=== PATIENT | female | born 1975 | race American Indian/Alaskan Native ===

== ENCOUNTER 2020-02-09 17:17 | Inpatient (IN) | payer BC ==
[2020-02-09] MEDS ORDERED: NALOXONE 0.4 MG/1 ML INJ IV PRN (17:51)
[2020-02-09] MEDS ORDERED: ALUM-MAG HYDROXIDE-SIMETHICONE 200-200-20MG/5ML ORAL LIQD 30 ML PO PRN (17:51)
[2020-02-09] MEDS ORDERED: ACETAMINOPHEN 325 MG TAB PO PRN (17:51)
[2020-02-09] MEDS ORDERED: ONDANSETRON 4 MG/2 ML INJ IV PRN (17:51)
[2020-02-09] MEDS ORDERED: MAGNESIUM HYDROXIDE (MOM) ORAL LIQD UDC PO PRN (17:51)
[2020-02-09] MEDS ORDERED: PROMETHAZINE 25 MG RECT SUPP PR PRN (17:51)
[2020-02-09 19:35] LABS: Basophils # (Auto) 0.1 K/mm3 (0.0-0.1); Basophils % (Auto) 0.6 % (0.0-1.8); Eosinophils # (Auto) 0.4 K/mm3 (0.0-0.4); Eosinophils % (Auto) 3.2 % (0.0-4.3); Hematocrit 31.1 % (30.3-42.9); Lymphocytes % (Auto) 17.4 % (13.4-35.0); Mean Corpuscular HGB Conc 32 % (30-34); Mean Corpuscular Volume 80 fl (79-97); Monocytes # (Auto) 1.2 K/mm3 (0.0-0.8); Monocytes % (Auto) 10.4 % (0.0-7.3); Platelet Count 364 K/mm3 (140-440); Red Blood Count 3.87 M/mm3 (3.65-5.03); Red Cell Distribution Width 16.1 % (13.2-15.2)
[2020-02-09 19:44] LABS: INR 1.21 (0.87-1.13)
[2020-02-09 19:45] LABS: Partial Thromboplastin Time 41.2 Sec. (24.2-36.6)
[2020-02-09 19:52] LABS: BUN/Creatinine Ratio 13; Blood Urea Nitrogen 8 mg/dL (7-17); Calcium 9.6 mg/dL (8.4-10.2); Hemolysis Index 0
[2020-02-09] MEDS: oxyCODONE /ACETAMINOPHEN 5-325MG TAB PO PRN (21:09)
[2020-02-09] MEDS: GABAPENTIN 300 MG CAP PO SCH (22:26)
[2020-02-09] MEDS: ENOXAPARIN 100 MG/1 ML INJ SUB-Q SCH (22:26)
[2020-02-09] MEDS: DOCUSATE SODIUM 100 MG CAP PO SCH (22:26)
[2020-02-09] MEDS: FAMOTIDINE 20 MG/2 ML INJ IV SCH (22:26)
[2020-02-10] MEDS: HYDROmorphone 1 MG/1 ML INJ IV PRN ×3 (02:11→20:47)
[2020-02-10] MEDS: oxyCODONE /ACETAMINOPHEN 5-325MG TAB PO PRN (03:28)
[2020-02-10] MEDS: GABAPENTIN 300 MG CAP PO SCH ×4 (06:52→21:01)
[2020-02-10] MEDS ORDERED: ACETAMINOPHEN 325 MG TAB ONE (07:18)
[2020-02-10] MEDS ORDERED: HEPARIN/NS 5000 UNIT/500ML 1,000 ML IR ONE (07:53)
[2020-02-10] MEDS ORDERED: SODIUM CHLORIDE 0.9% 500 ML 500 ML IV SCH (08:00)
[2020-02-10] MEDS ORDERED: ceFAZolin/Water 2 GM/20 ML 2 GM/20 ML SYRINGE IV ONE (08:06)
[2020-02-10] MEDS: MIDAZOLAM 2 MG/2 ML INJ ONE ×6 (08:10→11:03)
[2020-02-10] MEDS: fentaNYL 100 MCG/2 ML INJ ONE ×5 (08:10→10:18)
[2020-02-10] MEDS: LIDOCAINE (2%) 20 MG/1 ML VIAL 20 ML MDV INFILTRATI ONE ×2 (08:15→09:05)
[2020-02-10] MEDS ORDERED: ALTEPLASE 2 MG INJ ONE ×2 (08:42→08:44)
[2020-02-10] MEDS ORDERED: HEPARIN/NS 5000 UNIT/500ML 500 ML IR ONE (08:45)
[2020-02-10] MEDS ORDERED: SODIUM CHLORIDE 0.9% 100 ML ONE (08:46)
[2020-02-10] MEDS ORDERED: WATER FOR INJ STERILE ONE (08:46)
[2020-02-10] MEDS ORDERED: fentaNYL 100 MCG/2 ML INJ ONE (09:05)
[2020-02-10] MEDS ORDERED: MIDAZOLAM 2 MG/2 ML INJ ONE ×2 (09:05→11:00)
[2020-02-10] MEDS: HEPARIN 10,000 UNITS/10 ML VIAL ONE ×3 (09:16→10:55)
[2020-02-10] MEDS ORDERED: HYDROmorphone 1 MG/1 ML INJ ONE (10:28)
[2020-02-10] MEDS ORDERED: hydrALAZINE 20 MG/1 ML INJ ONE (10:44)
[2020-02-10] MEDS ORDERED: diphenhydrAMINE 50 MG/ML VIAL ONE (11:00)
[2020-02-10] MEDS ORDERED: KETOROLAC 30 MG/1 ML INJ ONE (11:24)
[2020-02-10] MEDS: SERTRALINE 100 MG TAB PO SCH (12:37)
[2020-02-10] MEDS: CLOPIDOGREL 75 MG TAB PO SCH (12:37)
[2020-02-10] MEDS: FAMOTIDINE 20 MG/2 ML INJ IV SCH ×2 (12:37→21:01)
[2020-02-10] MEDS: DOCUSATE SODIUM 100 MG CAP PO SCH ×2 (12:37→21:01)
[2020-02-10] MEDS: ENOXAPARIN 100 MG/1 ML INJ SUB-Q SCH ×2 (12:37→22:55)
--- NOTE | 2020-02-10 16:19 | Operative Report ---
Operative Report Operative Report: Date of Procedure: 02/10/2020 Pre-operative Diagnosis: Bilateral Lower Extremity DVT Post-operative Diagnosis: Same Procedure(s): 1. Ultrasound-Guided Access Right Internal Jugular Vein 2. Diagnostic Inferior Venacavogram 3. Placement of Honey IVC Filter 4. Diagnostic Right Lower Extremity Venogram 5. Diagnostic Left Lower Extremity Venogram 6. Percutaneous Pharmacomechanical Thrombectomy Of Left Common Femoral Vein with Zelante AngioJet Catheter, Vendor Representatives Device, and 20 mg of TPA 7. Percutaneous Pharmacomechanical Thrombectomy Of Left External Iliac Vein with Zelante AngioJet Catheter, Vendor Representatives Device, and 20 mg of TPA 8. Percutaneous Pharmacomechanical Thrombectomy Of Left Common Iliac Vein with Zelante AngioJet Catheter, Vendor Representatives Device, and 20 mg of TPA 9. Percutaneous Pharmacomechanical Thrombectomy Of Right Common Femoral Vein with Zelante AngioJet Catheter and 20 mg of TPA 10. Percutaneous Pharmacomechanical Thrombectomy Of Right External Iliac Vein with Zelante AngioJet Catheter and 20 mg of TPA 11. Percutaneous Pharmacomechanical Thrombectomy Of Right Common Iliac Vein with Zelante AngioJet Catheter and 20 mg of TPA 12. Percutaneous Mechanical Thrombectomy of Inferior Vena Cava with Zelante AngioJet Catheter 13. Angioplasty of Right Common Iliac Vein With 14 x 40 [place] Balloon 14. Angioplasty of Right External Iliac Vein with 14 x 40 [place] Balloon 15. Angioplasty of Right Common Femoral Vein with 14 x 40 [place] Balloon 16. Angioplasty and Stent of Left Common Iliac Vein With 14 x 40 [place] Balloon and 14 x 160 Venovo Stent 17. Angioplasty and Stent of Left Common Femoral Vein with a 14 x 40 [place] Balloon and 14 x 100 Venovo Stent 18. Radiologic Supervision with Interpretation Surgeon: Scot Franco M.D. 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 The stents thrombosed require intervention. She presented to the office with complaints of bilateral lower extremity pain as well as abdominal fullness and pain and was found to have DVTs in bilateral lower extremities despite being on full anticoagulation with Eliquis. She is in need of placement of an IVC filter as well as bilateral lower extremity venograms and possible percutaneous bilateral lower extremity mechanical thrombectomies. She was given the risk, benefits, and alternative procedures and consented to the procedure. Venogram Findings: The IVC filter was placed at the body of L1 at the level of the renal veins. The inferior venacavogram revealed that there was thrombus in the distal IVC above the right common iliac vein stent. The right lower extremity venogram revealed the popliteal vein and femoral vein were chronically occluded. The saphenous vein was dilated and the dominant outflow of the lower extremity. The common femoral vein was occluded just distal to the previously placed stent. The profunda vein was patent and the outflow was through collaterals lateral to the previously placed stent. The stent in the common femoral, external iliac, and common iliac were occluded. The left lower extremity venogram revealed that the popliteal vein and femoral vein were patent. The common femoral vein was occluded with thrombus. There was thrombus within the distal external iliac vein. The proximal external iliac vein had approximately 95% stenosis. There was thrombus within the common iliac vein and stenosis of approximately 95%. After intervention the right common femoral vein was patent with approximately 20% residual stenosis. There was approximately 25% residual stenosis within the external iliac vein and right common iliac vein. The left common femoral vein was patent with less than 15% residual stenosis and minimal residual thrombus. The left external iliac vein and common iliac vein were both patent with less than 15% residual stenosis and minimal residual thrombus. There was evidence of minimal residual thrombus on the right lateral wall of the inferior vena cava and no residual thrombus noted within the IVC filter. Description of Procedure: The patient was brought to the laborer wrecking and salvaging and laid in supine position. After a timeout was performed the patient's right neck was prepped and draped in normal sterile fashion. Ultrasound was used to identify the right internal jugular vein and confirm patency. Once patency was confirmed the overlying skin and soft tissue was anesthetized with lidocaine. An 11 blade was used to make a sma ll stab incision and an 18-gauge needle was used with ultrasound guidance to enter the right internal jugular vein. A 0.035 J-wire was advanced into the superior vena cava and the needle was exchanged for 5 Cambodian sheath by Seldinger technique. A vertebral catheter was then used to advance the J-wire into the inferior vena cava and the 5 [place]odian sheath was exchanged for the IVC filter delivery catheter. A diagnostic inferior venacavogram was performed with the previously described findings. The IVC filter was then inserted and positioned at the body of L1 and the delivery sheath was then withdrawn deploying the filter at the body of L1. The delivery sheath was then removed and pressure was held at the insertion site until hemostasis was achieved and Dermabond was used to close the insertion site. The patient was then moved onto her bed and then flipped into prone position. Her bilateral popliteal fossa's were then prepped and draped in normal sterile fashion. Ultrasound was used to identify the left popliteal vein and confirm patency. Once patency was confirmed the overlying skin and soft tissue was anesthetized with lidocaine and a small stab incision was made with an 11 blade. A 21-gauge micropuncture needle was used with ultrasound guidance into the left popliteal vein. A 0.018 micropuncture wire was advanced into the vein and the needle was exchanged for micropuncture sheath. A 0.035 advantage wire was advanced into the vein and the micropuncture sheath was exchanged for 5 Cambodian sheath by Seldinger technique. A diagnostic venogram was performed with the previously described findings. I then used ultrasound to identify the right popliteal vein and confirm patency. I then anesthetized the overlying skin and soft tissue with lidocaine and used an 11 blade to make a small stab incision in the use a 21-gauge micropuncture needle with ultrasound guidance to enter the vein and then advanced the micropuncture sheath. I performed a diagnostic venogram and this demonstrated that I was in a collateral vein and that the popliteal vein and femoral vein were chronically occluded and that the saphenous vein was dilated and the main outflow from the right lower extremity. I advanced a 0.035 advantage wire through the micropuncture sheath and was able to manipulate the wire through a collateral branch into the saphenous vein into the occluded portion of the common femoral vein. I exchanged the micropuncture sheath for 5 Cambodian sheath and advanced a Navicross catheter to the level of occlusion. At this point I systemically heparinized the patient with 5000 units of heparin IV and this was redosed with 1000 units every 45 minutes until the completion of the case. I made multiple attempts with various catheters and wires to cross the occlusion into the stent within the proximal common femoral vein without success. I decided to abort the attempts and work on the left side. I advanced the Navicross catheter over the advantage wire in the left common femoral vein. I advanced the wire and catheter into the proximal left external iliac vein and met resistance however I was eventually able to advance the catheter wire into the proximal left common iliac vein. I attempted to advance the catheter wire into the inferior vena cava however the wire catheter went up and over the bifurcation and into the right common iliac vein and stents. I was able to advance the wire catheter into the distal right external iliac vein. I removed the Navicross catheter and exchanged the 5 Cambodian sheath for a 6 Cambodian 90 cm destination sheath. I readvanced the Navicross catheter and was able to advance the wire catheter through the occluded portion of the stent and into the right saphenous vein. I then advanced a Tulip snare catheter through the 5 Cambodian sheath in the popliteal vein and was able to snare the catheter and snared the advantage wire. I pulled the wire through the right popliteal vein and then advanced the Choe cross catheter back through the proximal common iliac vein. I removed the advantage wire and turned at the proper way and advanced the wire into the inferior vena cava. I then advanced an additional advantage wire through the left popliteal vein and into the inferior vena cava. I exchanged both popliteal vein sheaths for 1010 Cambodian 11 cm sheath. I then used the Zelante AngioJet Catheter, using the pulse spray mode, to lace the common femoral vein, external iliac vein, common iliac vein, and IVC bilaterally with 20 mg of TPA respectively and allow this to dwell for 20 minutes. After using the pulse removed I used the Zelante AngioJet Catheter to perform percutaneous mechanical thrombectomy of common femoral, external iliac, common iliac veins bilaterally and the distal IVC. The follow-up venogram on the right lower extremity revealed minimal residual thrombus however there was stenosis within the veins were performed angioplasty with a 14 x 40 [place] balloon resulting in approximately 20% residual stenosis within the common femoral vein and 25% residual stenosis within the external iliac and common iliac vein. The follow- up venogram on the left lower extremity revealed no outflow through the left common femoral iliac veins. I advanced the catheter and performed a venogram from the common femoral vein revealing some residual thrombus within the common femoral vein as well as the distal external iliac vein so I advanced a service cleaner device to morcellate the thrombus. I then readvanced the AngioJet catheter and was able to aspirate the thrombus. Additional venogram revealed that there was still minimal flow throughout the iliac system and advancement of the catheter with a venogram revealed the stenosis within the external iliac as well as the common iliac vein. I advanced the wire into the inferior vena cava and performed angioplasty of the common iliac vein, external iliac vein, and common femoral vein with a 14 x 40 [place] balloon however all lesions recoil. I decided to place stents. I advanced a 14 x 160 Venovo Stent into the proximal common iliac vein and deployed this followed by a 14 x 100 Venovo Stent that extended into the mid common femoral vein. I postdilated the stents with a 14 x 40 [place] balloon with a result of less than 15% residual stenosis throughout all the veins and minimal residual thrombus. There was some thrombus that was pushed into the distal inferior vena cava. I advanced an 8 Cambodian multipurpose catheter into the distal inferior vena cava and was able to aspirate the thrombus and examination of thrombus revealed that this was clearly chronic thrombus. Follow-up venogram revealed minimal residual thrombus in the distal lateral right IVC and no thrombus was appreciated within the inferior vena cava filter. At this point I removed all catheters and wires and the sheaths within the popliteal veins were removed and sterile pressure dressings were applied and the patient was transported to her room in stable condition.
[2020-02-10] MEDS: METOCLOPRAMIDE 10 MG/2 ML INJ IV PRN (20:48)
[2020-02-11] MEDS: HYDROmorphone 1 MG/1 ML INJ IV PRN ×2 (04:23→09:02)
[2020-02-11] MEDS: GABAPENTIN 300 MG CAP PO SCH (06:25)
[2020-02-11 07:39] VITALS: BP 102/58
--- NOTE | 2020-02-11 08:56 | Progress Note ---
Assessment and Plan The patient is significantly improved after bilateral iliofemoral percutaneous mechanical thrombectomy and stenting of the left iliac and common femoral veins. She will be discharged on Lovenox 100 mg subcu twice daily and I will have her follow-up with a hotel administrative assistant in her area for a hypercoagulable work-up and I suspect that she will be transition to Coumadin. I will have her follow-up with me in the office in 2 weeks and at that time I will schedule her for removal of her IVC filter. I will also add Robaxin to her discharge medications for pain control. Otherwise she is clinically ready for discharge home. She has been given her discharge instructions and has expressed understanding. Subjective Date of service: 02/11/20 Principal diagnosis: B/L DVT Interval history: The patient is without new complaints. She is significantly improved from prior to the procedure. She has some back pain however it is better than prior to the procedure. Objective - Constitutional Vitals: Vital Signs - 12hr 02/10/20 02/11/20 02/11/20 23:47 01:00 03:40 Temperature 98.8 F 98.2 F Pulse Rate 79 87 79 Pulse Rate [ 75 From Monitor] Respiratory 18 18 18 Rate Blood Pressure 111/62 109/60 O2 Sat by Pulse 99 100 Oximetry 02/11/20 07:32 Temperature 98.3 F Pulse Rate 69 Pulse Rate [ From Monitor] Respiratory 16 Rate Blood Pressure 102/58 O2 Sat by Pulse 99 Oximetry General appearance: Present: no acute distress - Neck Neck: other (Right neck procedure site is without hematoma.) - Respiratory Respiratory effort: normal - Cardiovascular Rhythm: regular Extremities: no ischemia, abnormal (Right posterior knee access site with minimal bleeding.) Extremity abnormal: edema (Right greater than left however improved from prior to procedure.), other (Right lateral malleolus ulceration is almost completely healed) - Gastrointestinal General gastrointestinal: Present: soft, tender (Mild tenderness suprapubic area), distended (Mildly distended) Rectal Exam: deferred - Genitourinary Female genitourinary: deferred - Labs CBC & Chem 7: 02/09/20 19:11 02/09/20 19:11 Medications & Allergies - Medications Allergies/Adverse Reactions: Allergies naproxen Adverse Reaction (Verified 02/09/20 17:19) Rash Home Medications: Home Medications Medication Instructions Recorded Confirmed Last Taken Type Cyclobenzaprine HCl 02/10/20 Unknown History [Cyclobenzaprine 7.5 MG TAB] Active Medications: Generic Name Dose Route Start Last Admin Trade Name Freq PRN Reason Stop Dose Admin Acetaminophen 650 mg 02/09/20 17:51 02/10/20 07:18 Tylenol PO 650 mg Q4H PRN Administration Pain MILD(1-3)/Fever >100.5/MORA Al Hydrox/Mg Hydrox/Simethicone 30 ml 02/09/20 17:51 Alum-Mag Hydrox-Simeth [id number]/5ml PO Q4H PRN Indigestion Bisacodyl 10 mg 02/09/20 17:51 Dulcolax NJ QDAY PRN Constipation unrelieved by MOM Clopidogrel Bisulfate 75 mg 02/10/20 13:00 02/10/20 12:37 Plavix PO 75 mg QDAY ALEN Administration Docusate Sodium 100 mg 02/09/20 22:00 02/10/20 21:01 Colace PO 100 mg BID ALEN Administration Enoxaparin Sodium 100 mg 02/09/20 22:00 02/10/20 22:55 Enoxaparin SUB-Q 100 mg Q12HR ALEN Administration Famotidine 20 mg 02/09/20 22:00 02/10/20 21:01 Pepcid IV 20 mg BID ALEN Administration Gabapentin 300 mg 02/09/20 22:00 02/11/20 06:25 Gabapentin PO 300 mg Q8HR ALEN Administration Hydromorphone HCl 1 mg 02/09/20 17:51 02/11/20 04:23 Dilaudid IV 1 mg Q3H PRN Administration Pain, Moderate (4-6) Sodium Chloride 500 mls @ 50 mls/hr 02/10/20 08:00 02/10/20 07:25 Nacl 0.9% 500 Ml IV 50 mls/hr DIRECT ALEN Administration Magnesium Hydroxide 30 ml 02/09/20 17:51 Milk Of Magnesia PO Q4H PRN Constipation Metoclopramide HCl 10 mg 02/09/20 17:51 02/10/20 20:48 Reglan IV 10 mg Q6H PRN Administration Nausea And Vomiting Naloxone HCl 0.1 mg 02/09/20 17:51 Naloxone IV Q2MIN PRN Res Rate </= 8 or 02 SAT < 92% Ondansetron HCl 4 mg 02/09/20 17:51 02/10/20 15:34 Zofran IV 4 mg Q8H PRN Administration Nausea And Vomiting Oxycodone/Acetaminophen 2 tab 02/09/20 17:51 02/10/20 03:28 Percocet 5/325 PO 2 tab Q6H PRN Administration Pain, Moderate (4-6) Promethazine HCl 25 mg 02/09/20 17:51 Phenergan NJ Q6H PRN N/V IF NPO AND NO IV ACCESS Sertraline HCl 100 mg 02/10/20 10:00 02/10/20 12:37 Zoloft PO 100 mg QDAY ALEN Administration Sodium Chloride 10 ml 02/09/20 22:00 02/10/20 21:01 Sodium Chloride Flush Syringe 10 Ml IV 10 ml BID ALEN Administration Sodium Chloride 10 ml 02/09/20 17:51 Sodium Chloride Flush Syringe 10 Ml IV PRN PRN LINE FLUSH
[2020-02-11] MEDS: FAMOTIDINE 20 MG/2 ML INJ IV SCH (09:02)
[2020-02-11] MEDS: ENOXAPARIN 100 MG/1 ML INJ SUB-Q SCH (09:02)
[2020-02-11] MEDS: METOCLOPRAMIDE 10 MG/2 ML INJ IV PRN (09:03)
[2020-02-11] MEDS: DOCUSATE SODIUM 100 MG CAP PO SCH (09:03)
[2020-02-11] MEDS: CLOPIDOGREL 75 MG TAB PO SCH (09:03)
[2020-02-11] MEDS: SERTRALINE 100 MG TAB PO SCH (09:03)
--- NOTE | 2020-02-11 09:04 | Short Stay Summary ---
Short Stay Documentation Date of service: 02/10/20 Narrative H&P: See H&P - History H&P: obtained from office - Allergies and Medications Current Medications: Allergies naproxen Adverse Reaction (Verified 02/09/20 17:19) Rash Home Medications Medication Instructions Recorded Confirmed Last Taken Type Cyclobenzaprine HCl 02/10/20 Unknown History [Cyclobenzaprine 7.5 MG TAB] Active Medications Acetaminophen (Tylenol) 650 mg PO Q4H PRN PRN Reason: Pain MILD(1-3)/Fever >100.5/OMRA Last Admin: 02/10/20 07:18 Dose: 650 mg Documented by: Al Hydrox/Mg Hydrox/Simethicone (Alum-Mag Hydrox-Simeth [phone]/5ml) 30 ml PO Q4H PRN PRN Reason: Indigestion Bisacodyl (Dulcolax) 10 mg [place] QDAY PRN PRN Reason: Constipation unrelieved by MOM Clopidogrel Bisulfate (Plavix) 75 mg PO QDAY [facility] Last Admin: 02/10/20 12:37 Dose: 75 mg Documented by: Docusate Sodium (Colace) 100 mg PO BID [facility] Last Admin: 02/10/20 21:01 Dose: 100 mg Documented by: Enoxaparin Sodium (Enoxaparin) 100 mg SUB-Q Q12HR [facility] Last Admin: 02/10/20 22:55 Dose: 100 mg Documented by: Famotidine (Pepcid) 20 mg IV BID [facility] Last Admin: 02/10/20 21:01 Dose: 20 mg Documented by: Gabapentin (Gabapentin) 300 mg PO Q8HR [facility] Last Admin: 02/11/20 06:25 Dose: 300 mg Documented by: Hydromorphone HCl (Dilaudid) 1 mg IV Q3H PRN PRN Reason: Pain, Moderate (4-6) Last Admin: 02/11/20 04:23 Dose: 1 mg Documented by: Sodium Chloride (Nacl 0.9% 500 Ml) 500 mls @ 50 mls/hr IV DIRECT [facility] Last Admin: 02/10/20 07:25 Dose: 50 mls/hr Documented by: Magnesium Hydroxide (Milk Of Magnesia) 30 ml PO Q4H PRN PRN Reason: Constipation Metoclopramide HCl (Reglan) 10 mg IV Q6H PRN PRN Reason: Nausea And Vomiting Last Admin: 02/10/20 20:48 Dose: 10 mg Documented by: Naloxone HCl (Naloxone) 0.1 mg IV Q2MIN PRN PRN Reason: Res Rate </= 8 or 02 SAT < 92% Ondansetron HCl (Zofran) 4 mg IV Q8H PRN PRN Reason: Nausea And Vomiting Last Admin: 02/10/20 15:34 Dose: 4 mg Documented by: Oxycodone/Acetaminophen (Percocet 5/325) 2 tab PO Q6H PRN PRN Reason: Pain, Moderate (4-6) Last Admin: 02/10/20 03:28 Dose: 2 tab Documented by: Promethazine HCl (Phenergan) 25 mg [place] Q6H PRN PRN Reason: N/V IF NPO AND NO IV ACCESS Sertraline HCl (Zoloft) 100 mg PO QDAY ALEN Last Admin: 02/10/20 12:37 Dose: 100 mg Documented by: Sodium Chloride (Sodium Chloride Flush Syringe 10 Ml) 10 ml IV BID [facility] Last Admin: 02/10/20 21:01 Dose: 10 ml Documented by: Sodium Chloride (Sodium Chloride Flush Syringe 10 Ml) 10 ml IV PRN PRN PRN Reason: LINE FLUSH - Physical exam Extremities: no ischemia, abnormal (Right posterior knee access site with minimal bleeding.) - Brief post op/procedure progress note Date of procedure: 02/10/20 Pre-op diagnosis: Bilateral Lower Extremity DVT Post-op diagnosis: same Procedure: 1. Ultrasound-Guided Access Right Internal Jugular Vein 2. Diagnostic Inferior Venacavogram 3. Placement of [place] IVC Filter 4. Diagnostic Right Lower Extremity Venogram 5. Diagnostic Left Lower Extremity Venogram 6. Percutaneous Pharmacomechanical Thrombectomy Of Left Common Femoral Vein with Zelante AngioJet Catheter, [employer] Application Developer Device, and 20 mg of TPA 7. Percutaneous Pharmacomechanical Thrombectomy Of Left External Iliac Vein with Zelante AngioJet Catheter, [employer] Application Developer Device, and 20 mg of TPA 8. Percutaneous Pharmacomechanical Thrombectomy Of Left Common Iliac Vein with Zelante AngioJet Catheter, [employer] Application Developer Device, and 20 mg of TPA 9. Percutaneous Pharmacomechanical Thrombectomy Of Right Common Femoral Vein with Zelante AngioJet Catheter and 20 mg of TPA 10. Percutaneous Pharmacomechanical Thrombectomy Of Right External Iliac Vein with Zelante AngioJet Catheter and 20 mg of TPA 11. Percutaneous Pharmacomechanical Thrombectomy Of Right Common Iliac Vein with Zelante AngioJet Catheter and 20 mg of TPA 12. Percutaneous Mechanical Thrombectomy of Inferior Vena Cava with Zelante AngioJet Catheter 13. Angioplasty of Right Common Iliac Vein With 14 x 40 [place] Balloon 14. Angioplasty of Right External Iliac Vein with 14 x 40 [place] Balloon 15. Angioplasty of Right Common Femoral Vein with 14 x 40 [place] Balloon 16. Angioplasty and Stent of Left Common Iliac Vein With 14 x 40 Joshua Balloon and 14 x 160 Venovo Stent 17. Angioplasty and Stent of Left Common Femoral Vein with a 14 x 40 [place] Balloon and 14 x 100 Venovo Stent 18. Radiologic Supervision with Interpretation Anesthesia: local, other (Monitored Moderate Sedation) Surgeon: RAMIREZ AVILES Estimated blood loss: minimal Pathology: none Condition: stable - Hospital course Hospital course: The patient was admitted to the hospital on 02/09/2020 after presenting to my office with complaints of increasing abdominal pain and back pain and was found to have bilateral lower extremity DVTs. She was taken to the Construction Producer on 02/10/2020 and underwent IVC filter placement as well as bilateral lower extremity pharmacomechanical thrombectomy of bilateral iliacs and common femoral veins as well as her inferior vena cava. She also underwent stenting of the left iliac veins and common femoral vein. Postprocedure she returned to the telemetry floor where she remained on anticoagulation with Lovenox. Overnight she did well and her symptoms improved. She is clinically ready for discharge to home where she will remain on anticoagulation with Lovenox until she is able to follow-up with a gluer machine setup operator and undergo a hypercoagulable work-up and likely be transitioned to Coumadin since she developed DVTs while on Eliquis. - Disposition Condition at discharge: Good Disposition: [id number] TO HOME OR SELFCARE Short Stay Discharge Plan Activity: other (No strenuous activity for 24 hours) Wound: remove dressing (Okay to remove Raffaele bandages in 24 hours) Follow up with: RAMIREZ AVILES MD [Staff Physician] - 14 Days Prescriptions: Enoxaparin 100 mg SUB-Q Q12HR #60 syringe Oxycodone HCl/Acetaminophen [Percocet 7.5/325 mg] 1 each PO Q6HR PRN #40 tablet PRN Reason: Pain Clopidogrel [Plavix] 75 mg PO QDAY #90 tablet Tizanidine HCl [Zanaflex 2mg CAP] 2 mg PO Q6H PRN #40 capsule PRN Reason: Muscle Spasm
== END 2020-02-11 11:17 | disposition home or self-care (01) | DRG 272 ==
LOC: 4A 17:17 → UNDOADMIN 17:17 → 4A 17:51
PROVIDERS: ADMIT Surgery Vascular Surgery; ATTEND Surgery Vascular Surgery
PROC: 06H03DZ Insertion of Intraluminal Device into Inferior Vena Cava, Percutaneous Approach (ICD-10-PCS; principal; 2020-02-10)
PROC: 06CN3ZZ Extirpation of Matter from Left Femoral Vein, Percutaneous Approach (ICD-10-PCS; 2020-02-10)
PROC: 06CM3ZZ Extirpation of Matter from Right Femoral Vein, Percutaneous Approach (ICD-10-PCS; 2020-02-10)
PROC: 06CG3ZZ Extirpation of Matter from Left External Iliac Vein, Percutaneous Approach (ICD-10-PCS; 2020-02-10)
PROC: 06CF3ZZ Extirpation of Matter from Right External Iliac Vein, Percutaneous Approach (ICD-10-PCS; 2020-02-10)
PROC: 06CD3ZZ Extirpation of Matter from Left Common Iliac Vein, Percutaneous Approach (ICD-10-PCS; 2020-02-10)
PROC: 06CC3ZZ Extirpation of Matter from Right Common Iliac Vein, Percutaneous Approach (ICD-10-PCS; 2020-02-10)
PROC: 06C03ZZ Extirpation of Matter from Inferior Vena Cava, Percutaneous Approach (ICD-10-PCS; 2020-02-10)
PROC: 067C3ZZ Dilation of Right Common Iliac Vein, Percutaneous Approach (ICD-10-PCS; 2020-02-10)
PROC: 067F3ZZ Dilation of Right External Iliac Vein, Percutaneous Approach (ICD-10-PCS; 2020-02-10)
PROC: 067M3ZZ Dilation of Right Femoral Vein, Percutaneous Approach (ICD-10-PCS; 2020-02-10)
PROC: 067D3DZ Dilation of Left Common Iliac Vein with Intraluminal Device, Percutaneous Approach (ICD-10-PCS; 2020-02-10)
PROC: 067N3DZ Dilation of Left Femoral Vein with Intraluminal Device, Percutaneous Approach (ICD-10-PCS; 2020-02-10)
PROC: B543ZZA Ultrasonography of Right Jugular Veins, Guidance (ICD-10-PCS; 2020-02-10)
PROC: B5191ZZ Fluoroscopy of Inferior Vena Cava using Low Osmolar Contrast (ICD-10-PCS; 2020-02-10)
PROC: B51D1ZZ Fluoroscopy of Bilateral Lower Extremity Veins using Low Osmolar Contrast (ICD-10-PCS; 2020-02-10)
PROC: 3E03317 Introduction of Other Thrombolytic into Peripheral Vein, Percutaneous Approach (ICD-10-PCS; 2020-02-10)
DX: I82.493 Acute embolism and thrombosis of other specified deep vein of lower extremity, bilateral (principal)
CPT/HCPCS: 36415; 37187; 37191; 37238; 37239; 37248; 37249; 75822; 76937; 80048; 85025; 85610; 85730; G0378; C1725; C1757; C1769; C1773; C1876; C1880; C1887; C1894; J0360; J0690; J1170; J1200; J1644; J1650; J1885; J2250; J2405; J2765; J2997; J3010; J7040; Q9967

== ENCOUNTER 2021-10-27 06:00 | Day surgery (SDC) | payer BC ==
[~2021-10-27 06:00] MED LIST: SODIUM CHLORIDE 0.9% IRR 1,500 ML BOTTLE IR ONE; ceFAZolin/STERILE WATER 2 GM/20 ML SYRINGE IV NR
[2021-10-27] MEDS ORDERED: LACTATED RINGERS 1,000 ML ONE (10:14)
[2021-10-27] MEDS ORDERED: ONDANSETRON 4 MG/2 ML INJ IV PRN (10:49)
[2021-10-27] MEDS ORDERED: HYDROmorphone 1 MG/1 ML INJ IV PRN ×2 (10:49)
[2021-10-27] MEDS ORDERED: MORPHINE 2 MG/1 ML INJ IV ONE (10:50)
--- NOTE | 2021-10-27 10:51 | Anesthesia Day of Surgery ---
Anesthesia Day of Surgery - Day of Surgery Patient Examined: Yes Patient H&P Reviewed: Yes Patient is NPO: Yes
--- NOTE | 2021-10-27 10:52 | Anesthesia Consultation ---
Anesthesia Consult and Med Hx Date of service: 10/27/21 - Airway Anesthetic Teeth Evaluation: Good (Some missing) ROM Head & Neck: Adequate Mental/Hyoid Distance: Adequate Mallampati Class: Class III Intubation Access Assessment: Probably Good - Pre-Operative Health Status ASA Pre-Surgery Classification: ASA3 Proposed Anesthetic Plan: General - Pulmonary Hx Smoking: Yes (1 PACK CIGS/WEEK) Hx Asthma: No COPD: No Hx Pneumonia: No Hx Sleep Apnea: No - Cardiovascular System Hx Hypertension: No Hx Peripheral Vascular Disease: Yes - Central Nervous System Hx Psychiatric Problems: Yes (Anxiety/Depression) - Gastrointestinal Hx Gastroesophageal Reflux Disease: No - Endocrine Hx End Stage Renal Disease: No Hx Non-Insulin Dependent Diabetes: No - Other Systems Hx Alcohol Use: Yes (OCCASIONALLY) Hx Substance Use: No Hx Cancer: No
[2021-10-27] MEDS ORDERED: LACTATED RINGERS 1,000 ML IV SCH (11:00)
[2021-10-27] MEDS ORDERED: MIDAZOLAM 2 MG/2 ML INJ IV NR (11:00)
[2021-10-27] MEDS ORDERED: SODIUM BICARBONATE 2 MEQ/2 ML SYRINGE ONE (11:40)
[2021-10-27] MEDS ORDERED: LIDOCAINE (1%) 10 MG/1 ML VIAL 20 ML MDV ONE ×2 (11:40→11:44)
[2021-10-27] MEDS ORDERED: propofoL 200 MG/20 ML VIAL IV ONE ×2 (12:07→12:20)
[2021-10-27] MEDS ORDERED: MIDAZOLAM 2 MG/2 ML INJ ONE (12:21)
[2021-10-27] MEDS ORDERED: KETAMINE/STERILE WATER 50 MG/ML SYRINGE ONE (12:21)
[2021-10-27] MEDS ORDERED: SODIUM CHLORIDE 0.9% IRR 1,500 ML BOTTLE IR ONE (12:46)
[2021-10-27] MEDS ORDERED: HYDROmorphone 1 MG/1 ML INJ ONE (12:47)
[2021-10-27] MEDS ORDERED: ONDANSETRON 4 MG/2 ML INJ ONE (13:08)
[2021-10-27] MEDS ORDERED: LIDOCAINE MPF (2%) 20 MG/1 ML VIAL 5 ML ONE (13:08)
--- NOTE | 2021-10-27 13:38 | Short Stay Summary ---
Short Stay Documentation Date of service: 10/27/21 Narrative H&P: See H&P - History H&P: obtained from office - Allergies and Medications Current Medications: Allergies gabapentin Adverse Reaction (Verified 10/20/21 11:54) Rash naproxen Adverse Reaction (Verified 10/20/21 11:54) Rash Home Medications Medication Instructions Recorded Confirmed Last Taken Type Oxycodone HCl/Acetaminophen 1 each PO Q6HR PRN #40 tablet 02/11/20 10/27/21 10/26/21 14:00 Rx [Percocet 7.5/325 mg] Sertraline [Zoloft] 100 mg PO QDAY tablet 02/11/20 10/27/21 10/26/21 14:00 Rx ALPRAZolam [Xanax TAB] 0.5 mg PO TID PRN 10/20/21 10/27/21 10/26/21 12:00 History 20 MG Clindamycin [Clindamycin CAP] 300 mg PO BID 10/20/21 10/27/21 10/26/21 14:00 History DULoxetine [Cymbalta] 60 mg PO QDAY 10/20/21 10/27/21 10/26/21 14:00 History Pregabalin [Lyrica] 100 mg PO HS 10/20/21 10/27/21 10/26/21 14:00 History Rivaroxaban [Xarelto] 20 mg PO QDAY 10/20/21 10/27/21 10/26/21 14:00 History Rosa Plus 500 mg Caplet PRN PRN 10/27/21 10/26/21 14:00 History Active Medications Cefazolin Sodium (Cefazolin/Sterile Water 2 Gm/20 Ml Syringe) 2 gm IV PREOP NR Stop: 10/27/21 23:00 Hydromorphone HCl (Hydromorphone 1 Mg/1 Ml Inj) 0.25 mg IV Q10MIN PRN PRN Reason: Pain, Moderate (4-6) Hydromorphone HCl (Hydromorphone 1 Mg/1 Ml Inj) 0.5 mg IV Q10MIN PRN PRN Reason: Pain , Severe (7-10) Lactated Ringer's (Lactated Ringers) 1,000 mls @ 125 mls/hr IV DIRECT ALEN Last Admin: 10/27/21 10:15 Dose: 125 mls/hr Midazolam HCl (Midazolam 2 Mg/2 Ml Inj) 2 mg IV PREOP NR Stop: 10/27/21 23:59 Last Admin: 10/27/21 11:47 Dose: 2 mg Ondansetron HCl (Ondansetron 4 Mg/2 Ml Inj) 4 mg IV ONCE PRN PRN Reason: Nausea And Vomiting - Brief post op/procedure progress note Date of procedure: 10/27/21 Pre-op diagnosis: Venous Insufficiency of Right Leg Venous Ulcer Post-op diagnosis: same Procedure: 1. Excisional Debridement of Skin and Soft Tissue Of Right Leg Venous Ulcer with [employer] SonicOne SharpVac (Wound Measures 3 x 3 x 0.2 cm) 2. Placement of 5 x 5 cm ACell Cytal Wound Matrix 2-Layer Anesthesia: GETA Surgeon: RAMIREZ AVILES Pathology: none Condition: stable - Disposition Condition at discharge: Good Disposition: 01 HOME / SELF CARE / HOMELESS Short Stay Discharge Plan Activity: other (Keep right leg elevated at all times when not ambulating) Wound: per your surgeon's advice (Do not remove right leg dressing until seen by vascular surgeon in the office.) Follow up with: RAMIREZ AVILES MD [Staff Physician] - 11/02/21 11:30 am Prescriptions: Oxycodone HCl/Acetaminophen [Percocet 10/325 mg] 1 each PO Q6HR PRN #40 PRN Reason: Pain
--- NOTE | 2021-10-27 13:48 | Operative Report ---
Operative Report Operative Report: Date of Procedure: 10/27/2021 Pre-operative Diagnosis: Venous Insufficiency with Nonhealing Right Leg Venous U lcer Post-operative Diagnosis: Same Procedure(s): 1. Excisional Debridement of Skin and Soft Tissue Of Right Leg Venous Ulcer with [employer] SonicOne SharpVac (Wound Measures 3 x 3 x 0.2 cm) 2. Placement of 5 x 5 cm ACell Cytal Wound Matrix 2-Layer Surgeon: Scot Franco M.D. Sliver Cutter: None Anesthesia: General Endotracheal Anesthesia/Regional EBL: Minimal Counts: Correct Complications: None Condition: Stable Findings: Right leg wound was debrided to healthy tissue with a bleeding base. Specimen: None Indication: The patient is a 46-year-old female with history of venous insufficiency was had multiple procedures on her right lower extremity to relieve her severe swelling and assist with healing her right lower extremity ulceration. Despite the procedures she has a persistent ulcer that requires debridement with placement of a wound matrix to assist with healing. She has been given the risk, benefits, and alternative procedures and consented to the procedure. Description of Procedure: Prior to being transported to the operating room the patient had a regional block of her right lower extremity. The patient was then brought to the operating room and laid in supine position. After general endotracheal anesthesia was achieved her right leg was prepped and draped in normal sterile fashion. I used a [employer] SonicOne SharpVac to sharply debride the skin and soft tissue involving the wound on her right lateral leg. Once this had been debrided to clean tissue with a healthy bleeding wound base manual pressure was held on the wound until hemostasis was achieved. Once hemostasis was achieved I used a 5 x 5 cm ACell Cytal Wound Matrix 2-Layer that I was able to cut in half. I placed the 2 pieces on top of each other and since they were meshed I was able to spread it across the wound. I then placed a piece of folded iodoform gauze on top of the wound matrix to create a bolster and tacked this down using 2-0 chromic in interrupted fashion. I then dressed the wound with aqueous gel, to keep the wound matrix hydrated, fluffs, Kerlix roll, a 4 inch Raffaele bandage and a 6 inch Raffaele bandage. The patient tolerated the procedure well. All sponge, needle, and instrument counts were correct. The patient was taken to the recovery area in stable condition.
[2021-10-27 14:34] VITALS: BP 132/86
--- NOTE | 2021-10-27 16:18 | Post Anesthesia Evaluation ---
- Post Anesthesia Evaluation Patient Participated: Yes Airway Patent: Yes Stable Respiratory Function: Yes Nausea/Vomiting: No Temp > 96.8F: Yes Pain Manageable: Yes Adequeate Hydration: Yes Anesthesia Complications: No Block Receding Appropriately: Yes Patient on Ventilator: No
== END 2021-10-27 15:05 | disposition home or self-care (01) ==
LOC: OR 06:00
PROVIDERS: ATTEND Surgery Vascular Surgery
DX: I87.311 Chronic venous hypertension (idiopathic) with ulcer of right lower extremity (principal); F41.9 Anxiety disorder, unspecified; F32.9 Major depressive disorder, single episode, unspecified; F17.210 Nicotine dependence, cigarettes, uncomplicated; Z79.899 Other long term (current) drug therapy; Z98.890 Other specified postprocedural states; Z20.822 Contact with and (suspected) exposure to COVID-19
CPT/HCPCS: 11043; 11044; 81025; J0690; J1170; J2250; J2270; J2405; J2704; J3490; J7120; Q4161; U0003; 64450